=== PATIENT | male | born 1965 | race Caucasian/White ===

== ENCOUNTER 2019-04-17 04:22 | Emergency (ER) | payer MEDICAID ==
[~2019-04-17] VITALS: Ht 177.8 cm; Wt 85.4 kg
--- NOTE | 2019-04-17 04:31 | NUR ---
assessment made. chart up for MD to see. c/o left shoulder pain. Hx of torn rotator cuff. tonight pain worse and unable to left upper arm due to pain.
[2019-04-17] MEDS ORDERED: KETOROLAC 30 MG/1 ML ONE (04:44)
--- NOTE | 2019-04-17 04:48 | NUR ---
patient medicated. to X ray.
--- NOTE | 2019-04-17 04:58 | NUR ---
back from X ray. awaiting result.
[2019-04-17] MEDS ORDERED: KETOROLAC 30 MG/1 ML IM ONE (05:00)
--- NOTE | 2019-04-17 06:30 | NUR ---
re-evaluation done. patient dsicharged with prescriptions and instruction. verbalized understanding.
[2019-04-17 06:56] VITALS: BP 142/81
== END 2019-04-17 06:57 | disposition home or self-care (01) ==
LOC: ED 05:27
DX: S43.422A Sprain of left rotator cuff capsule, initial encounter (principal); I10 Essential (primary) hypertension; X58.XXXA Exposure to other specified factors, initial encounter; Y93.89 Activity, other specified; Y92.89 Other specified places as the place of occurrence of the external cause; Y99.8 Other external cause status
CPT/HCPCS: 73030; 96372; 99283; J1885

== ENCOUNTER 2019-06-21 10:53 | Emergency (ER) | payer MEDICAID ==
[~2019-06-21] VITALS: Ht 177.8 cm; Wt 81.0 kg
[2019-06-21 11:15] VITALS: BP 131/88
== END 2019-06-21 17:08 | disposition home or self-care (01) ==
LOC: ED 12:14
DX: M25.462 Effusion, left knee (principal); I10 Essential (primary) hypertension
CPT/HCPCS: 20610; 84560; 87070; 87205; 89051; 99284

== ENCOUNTER 2020-03-30 20:52 | Emergency (ER) | payer BC, MEDICAID, OTHER ==
[~2020-03-30] VITALS: Ht 177.8 cm; Wt 86.6 kg
[2020-03-30 20:55] VITALS: BP 147/88
--- NOTE | 2020-03-30 21:10 | NUR ---
PT TO ED WITH C/O DRY, SCALY, FLAKING SKIN AROUND NECK AND ACROSS SCALP X5 WEEKS. PT HAS TAKEN PRESCRIPTION MEDICATIONS WITHOUT RELEIF. PT REPORTS INCREASED DISCOMFORT AND ERYTHEMA.
== END 2020-03-30 21:41 | disposition home or self-care (01) ==
LOC: ED 21:30
DX: L20.9 Atopic dermatitis, unspecified (principal); I10 Essential (primary) hypertension; J45.909 Unspecified asthma, uncomplicated; F17.200 Nicotine dependence, unspecified, uncomplicated; Z90.49 Acquired absence of other specified parts of digestive tract
CPT/HCPCS: 99283

== ENCOUNTER 2020-04-08 12:35 | Inpatient (IN) | payer OTHER ==
[~2020-04-08] VITALS: Ht 177.8 cm; Wt 88.3 kg
--- NOTE | 2020-04-08 13:00 | NUR ---
PT PRESENTS TO ED WITH C/O RIGHT SHOULDER PAIN THAT HAS SLOWLY MIGRATED TO NECK, BACK, BILATERAL CHEST AND ABDOMEN, PRESENT X 3 DAYS. PT NOTES ASSOCIATED SX ARE NAUSEA, SOB, GENERALIZED MUSCULAR STIFFNESS. PT STATES MOVEMENT AND EXCERTION INCREASE PAIN. DENIES INJURY/TRAUMA. PT STATES HE HAS HAD SLIGHT COUGH X 2 DAYS, DENIES SORE THROAT, DENIES FEVERS, DENIES SICK CONTACTS. EKG TAKEN IN TRIAGE. ALL MONITORS IN PLACE. CALL LIGHT IN REACH. AWAITING MD AND DISPO.
--- NOTE | 2020-04-08 13:28 | NUR ---
pt seen and examined by KISHOR Lama. labs drawn. all monitors in place. pt to have labs/xray and CT scan.
[2020-04-08] MEDS ORDERED: ASPIRIN 81 MG TABLET CHEW PO ONE (13:30)
[2020-04-08 13:42] LABS: BASOPHILS # (AUTO) 0.04 x10^3/uL (0-0.1); BASOPHILS % (AUTO) 0 % (0-1); EOSINOPHILS # (AUTO) 0.06 x10^3/uL (0-0.4); EOSINOPHILS % (AUTO) 1 % (1-7); LYMPHOCYTES # (AUTO) 1.48 x10^3/uL (1-3.4); LYMPHOCYTES % (AUTO) 13 % (22-44); MD NO; MEAN CORPUSCULAR HEMOGLOBIN 32.2 pg (27.5-34.5); MEAN CORPUSCULAR HGB CONC 33.7 g/dL (33.2-36.2); MEAN CORPUSCULAR VOLUME 95.5 fL (81-97); MONOCYTES # (AUTO) 0.82 x10^3/uL (0.2-0.8); MONOCYTES % (AUTO) 7 % (2-9); NEUTROPHILS # (AUTO) 8.83 x10^3/uL (1.8-6.8); NEUTROPHILS % (AUTO) 79 % (42-75); PLATELET COUNT 268 x10^3/uL (130-400); RED BLOOD COUNT 4.79 x10^6/uL (4.38-5.82); RED CELL DISTRIBUTION WIDTH 14.4 % (9.4-14.8)
[2020-04-08 13:50] LABS: ANION GAP 7 mmol/L (5-15); CALCIUM 8.7 mg/dL (8.5-10.1); CHLORIDE 106 mmol/L (98-107)
--- NOTE | 2020-04-08 13:50 | NUR ---
pt to CT
[2020-04-08 13:56] LABS: ALANINE AMINOTRANSFERASE 33 U/L (12-78); ALKALINE PHOSPHATASE 79 U/L (45-117); CREATININE 0.99 mg/dL (0.7-1.3); TOTAL PROTEIN 7.2 g/dL (6.4-8.2); TROPONIN I < 0.015 ng/mL (0.000-0.045)
[2020-04-08] MEDS ORDERED: ASPIRIN 81 MG TABLET CHEW ONE (14:25)
--- NOTE | 2020-04-08 14:28 | NUR ---
pt back from CT, reports 5/10 chest/back pain. pt a&o, resps even and unlabored. nsr on desk monitor with no ectopy noted. all results back, chart up for recheck. awaiting MD and dispo.
[2020-04-08] MEDS ORDERED: OMNIPAQUE 350 MG/ML, 75ML BOTTLE ONE (14:55)
[2020-04-08] MEDS ORDERED: ONDANSETRON 2MG/ML, 2ML IVPush ONE (15:00)
--- NOTE | 2020-04-08 15:00 | NUR ---
REPORT GIVEN TO SURY AGUIRRE AT BEDSIDE. PT A&O, RESPS EVEN AND UNLABORED. MD DOMINIQUE AT BEDSIDE FOR REASSESSMENT AND TO UPDATE PT WITH POC .
[2020-04-08] MEDS: HYDROmorphone 2 MG/ML, 1ML IVPush PRN ×2 (15:15→19:38)
[2020-04-08] MEDS ORDERED: GADOTERATE 10 MMOL/20 ML SYR ONE (15:52)
--- NOTE | 2020-04-08 16:18 | NUR ---
PT RESTING IN BED, AWAITING MRI AT THIS TIME. DENIES ANY NEEDS OR CONCERNS. VERBALIZES GOOD PAIN RELIEF WITH MEDICATION PER MAR. CALL LIGHT IN REACH.
[2020-04-08] MEDS ORDERED: BISACODYL 10 MG SUPP PR PRN (19:00)
[2020-04-08] MEDS ORDERED: ACETAMINOPHEN 325 MG TABLET PO PRN (19:00)
[2020-04-08] MEDS ORDERED: ONDANSETRON 2MG/ML, 2ML IVPush PRN (19:00)
[2020-04-08] MEDS ORDERED: POLYETHYLENE GLYCOL 17 GM PACKET PO PRN (19:00)
[2020-04-08] MEDS ORDERED: morphine SULFATE 10 MG/ML, 1ML IVPush PRN (19:00)
[2020-04-08] MEDS ORDERED: HYDROmorphone 1 MG/ML, 1ML INJ ONE (19:37)
[2020-04-08 19:58] VITALS: BP 136/87
[2020-04-08] MEDS: SODIUM CHLORIDE FLUSH 10ML SYR IVF SCH (21:15)
[2020-04-08] MEDS: OXYcodone IR 5MG TABLET PO PRN (22:42)
[2020-04-08] MEDS: METHOCARBAMOL 500 MG TABLET PO PRN (23:52)
[2020-04-09] VITALS: BP 136/93
[2020-04-09] MEDS: OXYcodone IR 5MG TABLET PO PRN ×3 (03:04→12:09)
[2020-04-09 06:03] LABS: BASOPHILS # (AUTO) 0.03 x10^3/uL (0-0.1); BASOPHILS % (AUTO) 0 % (0-1); EOSINOPHILS # (AUTO) 0.11 x10^3/uL (0-0.4); EOSINOPHILS % (AUTO) 1 % (1-7); LYMPHOCYTES # (AUTO) 1.88 x10^3/uL (1-3.4); LYMPHOCYTES % (AUTO) 16 % (22-44); MD NO; MEAN CORPUSCULAR HEMOGLOBIN 32.1 pg (27.5-34.5); MEAN CORPUSCULAR HGB CONC 32.9 g/dL (33.2-36.2); MEAN CORPUSCULAR VOLUME 97.4 fL (81-97); MEAN PLATELET VOLUME 7.9 fL (7.4-10.4); MONOCYTES % (AUTO) 8 % (2-9); NEUTROPHILS # (AUTO) 8.95 x10^3/uL (1.8-6.8); NEUTROPHILS % (AUTO) 75 % (42-75); PLATELET COUNT 258 x10^3/uL (130-400); RED BLOOD COUNT 4.33 x10^6/uL (4.38-5.82); RED CELL DISTRIBUTION WIDTH 14.4 % (9.4-14.8)
[2020-04-09 06:08] LABS: ANION GAP 5 mmol/L (5-15); CALCIUM 8.6 mg/dL (8.5-10.1); CHLORIDE 104 mmol/L (98-107)
[2020-04-09] MEDS: SODIUM CHLORIDE FLUSH 10ML SYR IVF SCH ×2 (08:11→20:19)
[2020-04-09] MEDS: SENNA/DOCUSATE TABLET PO SCH (08:11)
[2020-04-09] MEDS: NICOTINE 7 MG/24 HR PATCH.TD24 TD SCH (08:11)
[2020-04-09] MEDS ORDERED: DEXAMETHASONE 4 MG TABLET PO ONE (14:30)
[2020-04-09] MEDS ORDERED: DEXAMETHASONE 4 MG/ML, 1ML IVPush SCH (14:30)
[2020-04-09] MEDS: DEXAMETHASONE 4 MG/ML, 1ML IVPush SCH (14:43)
[2020-04-09] MEDS: OXCARBAZEPINE 150 MG TABLET PO SCH ×2 (14:43→20:18)
[2020-04-09 15:15] VITALS: BP 156/100
[2020-04-09 20:28] VITALS: BP 144/85
[2020-04-10 00:57] VITALS: BP 112/81
[2020-04-10 07:39] VITALS: BP 145/82
[2020-04-10] MEDS: METHOCARBAMOL 500 MG TABLET PO PRN ×3 (08:41→22:06)
[2020-04-10] MEDS: OXYcodone IR 5MG TABLET PO PRN ×3 (08:42→20:53)
[2020-04-10] MEDS: SENNA/DOCUSATE TABLET PO SCH (09:28)
[2020-04-10] MEDS: OXCARBAZEPINE 150 MG TABLET PO SCH ×2 (09:28→19:55)
[2020-04-10] MEDS: DEXAMETHASONE 4 MG/ML, 1ML IVPush SCH (09:29)
[2020-04-10] MEDS: SODIUM CHLORIDE FLUSH 10ML SYR IVF SCH ×2 (09:29→19:55)
[2020-04-10] MEDS: NICOTINE 7 MG/24 HR PATCH.TD24 TD SCH (09:41)
[2020-04-10 16:21] VITALS: BP 119/76
[2020-04-10 18:27] VITALS: BP 142/86
[2020-04-11 00:09] VITALS: BP 144/87
[2020-04-11] MEDS: OXYcodone IR 5MG TABLET PO PRN ×4 (03:21→20:32)
[2020-04-11 07:57] VITALS: BP 156/93
[2020-04-11] MEDS: DEXAMETHASONE 4 MG/ML, 1ML IVPush SCH (09:01)
[2020-04-11] MEDS: OXCARBAZEPINE 150 MG TABLET PO SCH ×2 (09:02→20:32)
[2020-04-11] MEDS: SENNA/DOCUSATE TABLET PO SCH (09:02)
[2020-04-11] MEDS: SODIUM CHLORIDE FLUSH 10ML SYR IVF SCH ×2 (09:03→20:33)
[2020-04-11] MEDS: NICOTINE 7 MG/24 HR PATCH.TD24 TD SCH (09:03)
[2020-04-11] MEDS: METHOCARBAMOL 500 MG TABLET PO PRN (10:45)
[2020-04-11 13:07] VITALS: BP 140/82
[2020-04-11] MEDS: CYCLOBENZAPRINE 10 MG TABLET PO PRN (17:08)
[2020-04-11 19:48] VITALS: BP 154/77
[2020-04-12 01:55] VITALS: BP 136/84
[2020-04-12] MEDS: OXYcodone IR 5MG TABLET PO PRN ×2 (04:52→09:02)
[2020-04-12 07:26] VITALS: BP 146/85
[2020-04-12] MEDS: NICOTINE 7 MG/24 HR PATCH.TD24 TD SCH (09:02)
[2020-04-12] MEDS: SENNA/DOCUSATE TABLET PO SCH (09:02)
[2020-04-12] MEDS: OXCARBAZEPINE 150 MG TABLET PO SCH (09:02)
[2020-04-12] MEDS: SODIUM CHLORIDE FLUSH 10ML SYR IVF SCH (09:03)
[2020-04-12] MEDS: CYCLOBENZAPRINE 10 MG TABLET PO PRN (10:20)
[2020-04-12 13:30] VITALS: BP 139/82
[2020-04-12] MEDS ORDERED: CYCL-259 PO (14:07)
[2020-04-12] MEDS ORDERED: PRED20TA PO (14:07)
[2020-04-12] MEDS ORDERED: OXCA150T18 PO (14:07)
[2020-04-12] MEDS ORDERED: OXYC5TAB3 PO (14:07)
== END 2020-04-12 15:40 | disposition home or self-care (01) | DRG 74 ==
LOC: ED 13:26 → EDIP 18:11 → 3N 19:49 → DCLOUNGE 04-12 15:31
PROVIDERS: ADMIT Family Medicine; ATTEND Internal Medicine
DX: G54.0 Brachial plexus disorders (principal); G54.5 Neuralgic amyotrophy; I10 Essential (primary) hypertension; J45.909 Unspecified asthma, uncomplicated; M19.011 Primary osteoarthritis, right shoulder; M48.02 Spinal stenosis, cervical region; Z66 Do not resuscitate; F17.210 Nicotine dependence, cigarettes, uncomplicated; Z90.49 Acquired absence of other specified parts of digestive tract; Z88.8 Allergy status to other drugs, medicaments and biological substances
CPT/HCPCS: 36415; 71275; 72156; 80048; 80053; 84484; 85025; 93005; 96374; 96375; 96376; G0378; J1100; J1170; J2405; Q9967; A9575; C8935 RT; J7512

== ENCOUNTER 2020-04-19 14:20 | Emergency (ER) | payer MEDICAID, OTHER ==
[~2020-04-19] VITALS: Ht 177.8 cm; Wt 85.4 kg
[~2020-04-19 14:20] MED LIST: CYCL-259 PO; OXCA150T18 PO; OXYC5TAB3 PO; PRED20TA PO
[2020-04-19 16:04] LABS: BASOPHILS # (AUTO) 0.03 x10^3/uL (0-0.1); BASOPHILS % (AUTO) 0 % (0-1); EOSINOPHILS # (AUTO) 0.09 x10^3/uL (0-0.4); EOSINOPHILS % (AUTO) 1 % (1-7); LYMPHOCYTES # (AUTO) 3.71 x10^3/uL (1-3.4); LYMPHOCYTES % (AUTO) 27 % (22-44); MD NO; MEAN CORPUSCULAR HEMOGLOBIN 31.9 pg (27.5-34.5); MEAN CORPUSCULAR HGB CONC 33.1 g/dL (33.2-36.2); MEAN CORPUSCULAR VOLUME 96.3 fL (81-97); MEAN PLATELET VOLUME 7.4 fL (7.4-10.4); MONOCYTES # (AUTO) 0.66 x10^3/uL (0.2-0.8); MONOCYTES % (AUTO) 5 % (2-9); NEUTROPHILS # (AUTO) 9.51 x10^3/uL (1.8-6.8); NEUTROPHILS % (AUTO) 68 % (42-75); PLATELET COUNT 381 x10^3/uL (130-400); RED BLOOD COUNT 4.64 x10^6/uL (4.38-5.82); RED CELL DISTRIBUTION WIDTH 14.3 % (9.4-14.8)
[2020-04-19 16:14] LABS: ALBUMIN 3.1 g/dL (3.4-5.0); ANION GAP 7 mmol/L (5-15); CALCIUM 8.9 mg/dL (8.5-10.1); CHLORIDE 111 mmol/L (98-107)
[2020-04-19 16:15] LABS: CREATININE 0.91 mg/dL (0.7-1.3)
--- NOTE | 2020-04-19 16:33 | NUR ---
attempted to re-vital, per familt patient recently taken for testing
[2020-04-19 16:46] VITALS: BP 166/99
== END 2020-04-19 18:36 | disposition home or self-care (01) ==
LOC: ED 17:17
DX: R21 Rash and other nonspecific skin eruption (principal); T42.1X5A Adverse effect of iminostilbenes, initial encounter; R06.02 Shortness of breath; I51.7 Cardiomegaly; I10 Essential (primary) hypertension; Y92.89 Other specified places as the place of occurrence of the external cause
CPT/HCPCS: 36415; 71046; 80048; 82040; 85025; 93005; 99285

== ENCOUNTER 2020-12-04 02:10 | Emergency (ER) | payer MEDICAID ==
[~2020-12-04] VITALS: Ht 180.3 cm; Wt 85.9 kg
[~2020-12-04 02:10] MED LIST changes: -OXYC5TAB3 PO; +OXYC5TAB98 PO
[2020-12-04 02:25] VITALS: BP 136/88
--- NOTE | 2020-12-04 02:30 | NUR ---
PT HAS BEEN USING RESCUE INHALER, PT WILL NEED NEW PRESCRIPTION FOR INHALER ALBUTEROL
[2020-12-04] MEDS ORDERED: ALBUTEROL/IPRATROPIUM 2.5MG/0.5MG, 3 ML ONE (02:40)
[2020-12-04] MEDS ORDERED: ALBUTEROL/IPRATROPIUM 2.5MG/0.5MG, 3 ML NPPB ONE (03:00)
[2020-12-04 03:06] LABS: BASOPHILS % (AUTO) 1 % (0-1); EOSINOPHILS % (AUTO) 14 % (1-7); LYMPHOCYTES % (AUTO) 27 % (22-44); MEAN CORPUSCULAR HEMOGLOBIN 32.8 pg (27.5-34.5); MEAN CORPUSCULAR HGB CONC 34.4 g/dL (33.2-36.2); MEAN PLATELET VOLUME 7.7 fL (7.4-10.4); MONOCYTES % (AUTO) 11 % (2-9); NEUTROPHILS % (AUTO) 48 % (42-75); PLATELET COUNT 268 x10^3/uL (130-400); RED BLOOD COUNT 4.66 x10^6/uL (4.38-5.82); RED CELL DISTRIBUTION WIDTH 13.6 % (9.4-14.8)
[2020-12-04 03:10] LABS: MD NO
[2020-12-04 03:16] LABS: ALBUMIN 3.4 g/dL (3.4-5.0); ANION GAP 6 mmol/L (5-15); CALCIUM 8.5 mg/dL (8.5-10.1); CHLORIDE 106 mmol/L (98-107); CREATININE 0.92 mg/dL (0.7-1.3)
[2020-12-04 03:19] LABS: TROPONIN I < 0.015 ng/mL (0.000-0.045)
== END 2020-12-04 04:18 | disposition home or self-care (01) ==
LOC: ED 03:19
DX: J45.21 Mild intermittent asthma with (acute) exacerbation (principal); R06.02 Shortness of breath; R05 Cough; R50.9 Fever, unspecified; I10 Essential (primary) hypertension; R00.0 Tachycardia, unspecified; F17.210 Nicotine dependence, cigarettes, uncomplicated; Z90.49 Acquired absence of other specified parts of digestive tract
CPT/HCPCS: 36415; 71045; 80048; 82040; 84484; 85025; 93005; 94640; 99285; 99406; J7512

== ENCOUNTER 2020-12-09 08:07 | Emergency (ER) | payer MEDICAID ==
[~2020-12-09] VITALS: Ht 177.8 cm; Wt 86.4 kg
[~2020-12-09 08:07] MED LIST changes: -CYCL-259 PO; +CYCL10TA2 PO
[2020-12-09 08:33] VITALS: BP 123/85
[2020-12-09] MEDS ORDERED: ALBUTEROL/IPRATROPIUM 2.5MG/0.5MG, 3 ML ONE (08:51)
[2020-12-09] MEDS ORDERED: ALBUTEROL/IPRATROPIUM 2.5MG/0.5MG, 3 ML NPPB ONE (09:00)
== END 2020-12-09 09:46 | disposition home or self-care (01) ==
LOC: ED 08:36
DX: J45.41 Moderate persistent asthma with (acute) exacerbation (principal); I10 Essential (primary) hypertension; Z87.891 Personal history of nicotine dependence
CPT/HCPCS: 71045; 94640; 99285; J7512

== ENCOUNTER 2020-12-19 12:47 | Inpatient (IN) | payer MEDICAID ==
[~2020-12-19] VITALS: Ht 177.8 cm; Wt 87.0 kg
--- NOTE | 2020-12-19 12:59 | NUR ---
PLASTER APPLICATOR: [facility]
--- NOTE | 2020-12-19 13:24 | NUR ---
THIS IS A 55 YR OLD MALE PT WHO SELF REPORTS A HX OF ASTHMA/COPD AND HTN. PT WAS RECENTLY SEEN IN THIS ER FOR SAME SYMPTOMS WHICH INCLUDE SOB REFRACTORY TO NEB TX AND RESCUE INHALER, CHEST PAIN DESCRIBED TIGHTNESS THAT GETS WORSE WITH DEEP INSPIRATION AND COUGH AND INABILITY TO SLEEP DUE TO THE SOB. PT STATES THIS EPIOSODE STARTED 2 DAYS AGO. PT STATES SMOKER FOR MANY YEARS AND JUST RECENTLY QUIT. PT PLACED ON CARDIAC, NIBP, AND O2 MONITORING. PT IN GOWN AND EKG PERFORMED. PT APPEARS IN MILD DISTRESS, BUT SPEAKS IN FULL SENTENCES WITH PAUSES TO CATCH BREATH.
[2020-12-19] MEDS ORDERED: SODIUM CHLORIDE FLUSH 10ML SYR IVF ONE (13:30)
--- NOTE | 2020-12-19 13:34 | NUR ---
pt in bed started iv labs drawn and sent.
[2020-12-19 13:44] LABS: BASOPHILS % (AUTO) 1 % (0-1); EOSINOPHILS % (AUTO) 8 % (1-7); LYMPHOCYTES % (AUTO) 19 % (22-44); MEAN CORPUSCULAR HEMOGLOBIN 32.5 pg (27.5-34.5); MEAN CORPUSCULAR HGB CONC 33.4 g/dL (33.2-36.2); MEAN PLATELET VOLUME 7.5 fL (7.4-10.4); MONOCYTES % (AUTO) 6 % (2-9); NEUTROPHILS % (AUTO) 66 % (42-75); PLATELET COUNT 343 x10^3/uL (130-400); RED BLOOD COUNT 4.86 x10^6/uL (4.38-5.82); RED CELL DISTRIBUTION WIDTH 13.9 % (9.4-14.8)
[2020-12-19 13:48] LABS: MD NO
[2020-12-19 13:55] LABS: ALANINE AMINOTRANSFERASE 31 U/L (12-78); ALBUMIN 3.6 g/dL (3.4-5.0); ANION GAP 14 mmol/L (5-15); CALCIUM 8.5 mg/dL (8.5-10.1); CHLORIDE 112 mmol/L (98-107); CREATININE 0.95 mg/dL (0.7-1.3)
[2020-12-19] MEDS ORDERED: ALBUTEROL/IPRATROPIUM 2.5MG/0.5MG, 3 ML ONE ×3 (13:57→15:01)
[2020-12-19 13:59] LABS: ALKALINE PHOSPHATASE 66 U/L (45-117); BILIRUBIN,TOTAL 0.6 mg/dL (0.2-1.0); TROPONIN I < 0.015 ng/mL (0.000-0.045)
[2020-12-19] MEDS: ALBUTEROL/IPRATROPIUM 2.5MG/0.5MG, 3 ML NPPB SCH ×2 (14:00→15:07)
--- NOTE | 2020-12-19 14:04 | NUR ---
PT IN BED ADMIN DUONEB.
--- NOTE | 2020-12-19 14:53 | NUR ---
pt in bed states partal relief from duoneb. will admit second.
[2020-12-19] MEDS ORDERED: SODIUM CHLORIDE 0.9% 1,000ML IVBOLUS ONE (15:30)
[2020-12-19] MEDS ORDERED: AMLO-210 PO (16:03)
--- NOTE | 2020-12-19 16:11 | NUR ---
med rec done
[2020-12-19] MEDS ORDERED: ALBUTEROL 0.5%, 20ML NPPB ONE (16:30)
--- NOTE | 2020-12-19 17:08 | NUR ---
in room to start ns bolus. pt resting comfortably. pillow provided for comfort. lights dimmed at request. pt updated on poc.
[2020-12-19] MEDS ORDERED: ALBUTEROL SULFATE 2.5 MG/3 ML ONE (17:12)
--- NOTE | 2020-12-19 17:18 | NUR ---
rt notified of treatment ordered. rt will be down for soraya tx
[2020-12-19] MEDS ORDERED: ALBUTEROL 0.5%, 20ML ONE (17:27)
--- NOTE | 2020-12-19 17:34 | NUR ---
pt in bed proventil started by respirtory
--- NOTE | 2020-12-19 18:47 | NUR ---
pt states that he still feels wheezing. neb treatment continued
--- NOTE | 2020-12-19 19:07 | NUR ---
admit to med requested
[2020-12-19] MEDS ORDERED: MELATONIN 5 MG TABLET PO PRN (20:00)
[2020-12-19] MEDS ORDERED: MORPHINE SULFATE 4 MG/ML, 1ML IVPush PRN (20:00)
[2020-12-19] MEDS ORDERED: ALBUTEROL/IPRATROPIUM 2.5MG/0.5MG, 3 ML HHN SCH (20:00)
[2020-12-19] MEDS: ENOXAPARIN 40 MG/0.4 ML SQ SCH (20:00)
[2020-12-19] MEDS ORDERED: ONDANSETRON ODT 4 MG PO PRN (20:00)
[2020-12-19] MEDS ORDERED: hydrALAzine 20 MG/ML, 1ML IVPush PRN (20:00)
[2020-12-19] MEDS ORDERED: ONDANSETRON 2MG/ML, 2ML IVPush PRN (20:00)
[2020-12-19] MEDS ORDERED: DOCUSATE 100 MG CAPSULE PO PRN (20:00)
[2020-12-19] MEDS ORDERED: LACTATED RINGERS 1,000 ML IV SCH (20:00)
[2020-12-19] MEDS ORDERED: BACLOFEN 10 MG TABLET PO PRN (20:00)
[2020-12-19] MEDS ORDERED: POLYETHYLENE GLYCOL 17 GM PACKET PO PRN (20:00)
[2020-12-19] MEDS ORDERED: BISACODYL 10 MG SUPP PR PRN (20:00)
--- NOTE | 2020-12-19 20:00 | NUR ---
PT IN BED ON ROOM AIR. NEBULIZER COMPLETE. PT STATE THAT FEELS BETTER
[2020-12-19] MEDS ORDERED: CEFTRIAXONE PMX 1GM/50ML 50 ML ONE (20:11)
[2020-12-19] MEDS ORDERED: methylPREDNISolone SOD SUCC 125 MG/2 ML ONE (20:11)
[2020-12-19] MEDS ORDERED: ENOXAPARIN 40 MG/0.4 ML ONE (20:11)
[2020-12-19] MEDS: methylPREDNISolone SOD SUCC 125 MG/2 ML IVPush SCH (20:14)
[2020-12-19] MEDS: CEFTRIAXONE PMX 1GM/50ML 50 ML IV SCH (20:15)
[2020-12-19] MEDS: DOXYCYCLINE 100 MG in DEXTROSE 5% 250 ML IV SCH (20:22)
[2020-12-19] MEDS: INSULIN LISPRO 100 UNITS/ML, PEN SQ-INSULIN SCH (20:22)
--- NOTE | 2020-12-19 20:30 | NUR ---
PT IN BED. NO DISTRESS
[2020-12-19] MEDS ORDERED: OMNIPAQUE 350 MG/ML, 100ML BOTTLE ONE (20:53)
--- NOTE | 2020-12-19 21:24 | NUR ---
PT IN BED IVAB RUNNING
--- NOTE | 2020-12-19 21:55 | NUR ---
REPORT GIVEN TO PAIGE GA,
[2020-12-19 22:13] VITALS: BP 147/86
[2020-12-20 01:13] VITALS: BP 127/68
[2020-12-20] MEDS: methylPREDNISolone SOD SUCC 125 MG/2 ML IVPush SCH ×4 (02:32→20:21)
[2020-12-20 05:56] LABS: MICROSCOPIC NOT IND
[2020-12-20 06:32] LABS: BASOPHILS % (AUTO) 1 % (0-1); EOSINOPHILS % (AUTO) 0 % (1-7); LYMPHOCYTES % (AUTO) 8 % (22-44); MEAN CORPUSCULAR HEMOGLOBIN 32.5 pg (27.5-34.5); MEAN CORPUSCULAR HGB CONC 33.5 g/dL (33.2-36.2); MEAN PLATELET VOLUME 7.8 fL (7.4-10.4); MONOCYTES % (AUTO) 1 % (2-9); NEUTROPHILS % (AUTO) 90 % (42-75); PLATELET COUNT 313 x10^3/uL (130-400); RED BLOOD COUNT 4.65 x10^6/uL (4.38-5.82); RED CELL DISTRIBUTION WIDTH 14.2 % (9.4-14.8)
[2020-12-20 06:34] LABS: MD SCAN
[2020-12-20 06:44] LABS: ANION GAP 12 mmol/L (5-15); CALCIUM 8.6 mg/dL (8.5-10.1); CHLORIDE 109 mmol/L (98-107)
[2020-12-20 06:56] LABS: ALANINE AMINOTRANSFERASE 25 U/L (12-78); ALKALINE PHOSPHATASE 66 U/L (45-117); BILIRUBIN,TOTAL 0.4 mg/dL (0.2-1.0); CREATININE 0.96 mg/dL (0.7-1.3); TOTAL PROTEIN 6.3 g/dL (6.4-8.2)
[2020-12-20 07:28] VITALS: BP 123/71
[2020-12-20] MEDS: ALBUTEROL HFA 90 MCG/SPRAY INH SCH ×3 (07:40→18:19)
[2020-12-20] MEDS: INSULIN LISPRO 100 UNITS/ML, PEN SQ-INSULIN SCH ×4 (07:50→20:21)
[2020-12-20] MEDS: PANTOPRAZOLE 40 MG IV IVPush SCH (07:51)
[2020-12-20] MEDS: AMLODIPINE 5 MG TABLET PO SCH (08:57)
[2020-12-20] MEDS: DOXYCYCLINE 100 MG in DEXTROSE 5% 250 ML IV SCH ×2 (08:58→22:07)
[2020-12-20] MEDS: NICOTINE 14MG/24 HR PATCH.TD24 TD SCH (10:33)
[2020-12-20] MEDS: HYDROcodone/APAP 5/325 TABLET PO PRN (12:17)
[2020-12-20 12:48] VITALS: BP 137/77
[2020-12-20] MEDS ORDERED: GUAIFENESIN/DM 100-10MG, 5ML UDC ONE (16:15)
[2020-12-20] MEDS: GUAIFENESIN/DM 100-10MG, 5ML UDC PO PRN (16:16)
[2020-12-20 19:33] VITALS: BP 126/78
[2020-12-20] MEDS: ENOXAPARIN 40 MG/0.4 ML SQ SCH (20:00)
[2020-12-20] MEDS: ALBUTEROL HFA 90 MCG/SPRAY INH PRN (20:09)
[2020-12-20] MEDS: DIPHENHYDRAMINE 25 MG CAPSULE PO PRN (20:15)
[2020-12-20] MEDS: CEFTRIAXONE PMX 1GM/50ML 50 ML IV SCH (20:20)
[2020-12-21] MEDS: ALBUTEROL HFA 90 MCG/SPRAY INH SCH ×4 (01:10→19:00)
[2020-12-21] MEDS: methylPREDNISolone SOD SUCC 125 MG/2 ML IVPush SCH ×4 (01:11→19:35)
[2020-12-21 01:15] VITALS: BP 124/76
[2020-12-21] MEDS: GUAIFENESIN/DM 100-10MG, 5ML UDC PO PRN ×2 (01:20→10:09)
[2020-12-21] MEDS: ALBUTEROL HFA 90 MCG/SPRAY INH PRN ×2 (05:20→18:27)
[2020-12-21] MEDS: ACETAMINOPHEN 325 MG TABLET PO PRN ×2 (05:38→10:09)
[2020-12-21 07:06] VITALS: BP 119/76
[2020-12-21] MEDS: DOXYCYCLINE 100 MG in DEXTROSE 5% 250 ML IV SCH ×2 (07:59→22:00)
[2020-12-21] MEDS: AMLODIPINE 5 MG TABLET PO SCH (07:59)
[2020-12-21] MEDS: INSULIN LISPRO 100 UNITS/ML, PEN SQ-INSULIN SCH ×4 (08:05→21:03)
[2020-12-21] MEDS: FLUTICASONE/VILANTEROL 200-25MCG/INH INH SCH (10:09)
[2020-12-21] MEDS: PANTOPRAZOLE 40 MG IV IVPush SCH (10:09)
[2020-12-21] MEDS: NICOTINE 14MG/24 HR PATCH.TD24 TD SCH (11:50)
[2020-12-21 12:43] VITALS: BP 123/73
[2020-12-21] MEDS ORDERED: POTASSIUM PHOSPHATE 22 MEQ in SODIUM CHLORIDE 0.9% 500 ML IV ONE (13:15)
[2020-12-21] MEDS: DIPHENHYDRAMINE 25 MG CAPSULE PO PRN (18:26)
[2020-12-21] MEDS: CEFTRIAXONE PMX 1GM/50ML 50 ML IV SCH (19:35)
[2020-12-21] MEDS: ENOXAPARIN 40 MG/0.4 ML SQ SCH (19:36)
[2020-12-21 19:51] VITALS: BP 128/82
[2020-12-22 00:25] VITALS: BP 136/78
[2020-12-22] MEDS: ALBUTEROL HFA 90 MCG/SPRAY INH SCH ×5 (01:00→19:00)
[2020-12-22] MEDS: methylPREDNISolone SOD SUCC 125 MG/2 ML IVPush SCH ×4 (01:46→19:55)
[2020-12-22 05:02] LABS: MEAN CORPUSCULAR HGB CONC 34.1 g/dL (33.2-36.2); PLATELET COUNT 316 x10^3/uL (130-400); RED BLOOD COUNT 4.74 x10^6/uL (4.38-5.82); RED CELL DISTRIBUTION WIDTH 14.1 % (9.4-14.8)
[2020-12-22 05:12] LABS: ANION GAP 10 mmol/L (5-15); CALCIUM 8.5 mg/dL (8.5-10.1); CHLORIDE 109 mmol/L (98-107)
[2020-12-22 05:13] LABS: CREATININE 0.82 mg/dL (0.7-1.3)
[2020-12-22 05:51] LABS: MD YES
[2020-12-22 05:54] LABS: BAND#(MANUAL) 0.21 x10^3/uL; BANDS%(MANUAL) 1 % (0-7); BASOS#(MANUAL) 0.21 x10^3/uL (0-0.1); BASOS% (MANUAL) 1 % (0-1); LYMPH#(MANUAL) 0.62 x10^3/uL (1-3.4); LYMPHS% (MANUAL) 3 % (22-44); MONOS#(MANUAL) 0.21 x10^3/uL (0.3-2.7); MONOS% (MANUAL) 1 % (2-9); SEG#(MANUAL) 19.36 x10^3/uL (1.8-6.8); SEGS% (MANUAL) 94 % (42-75)
[2020-12-22 05:55] LABS: ANISOCYTOSIS 1+; OVALOCYTES 1+
[2020-12-22 05:56] LABS: <PLATELET ESTIMATE> ADEQUATE; <PLT MORPHOLOGY> NORMAL PLT MORPH
[2020-12-22] MEDS: INSULIN LISPRO 100 UNITS/ML, PEN SQ-INSULIN SCH ×4 (07:00→20:57)
[2020-12-22] MEDS: DOXYCYCLINE 100 MG in DEXTROSE 5% 250 ML IV SCH ×2 (07:15→08:30)
[2020-12-22 07:17] VITALS: BP 137/87
[2020-12-22] MEDS: AMLODIPINE 5 MG TABLET PO SCH (08:29)
[2020-12-22] MEDS: NICOTINE 14MG/24 HR PATCH.TD24 TD SCH (08:29)
[2020-12-22] MEDS: HYDROcodone/APAP 5/325 TABLET PO PRN (08:36)
[2020-12-22] MEDS: FLUTICASONE/VILANTEROL 200-25MCG/INH INH SCH (10:37)
[2020-12-22 12:45] VITALS: BP 113/72
[2020-12-22] MEDS: CEFTRIAXONE PMX 1GM/50ML 50 ML IV SCH (19:38)
[2020-12-22] MEDS: ENOXAPARIN 40 MG/0.4 ML SQ SCH (19:54)
[2020-12-22 20:42] VITALS: BP 126/76
[2020-12-23 01:09] VITALS: BP 128/75
[2020-12-23] MEDS: DIPHENHYDRAMINE 25 MG CAPSULE PO PRN (01:18)
[2020-12-23] MEDS: ALBUTEROL HFA 90 MCG/SPRAY INH SCH ×4 (02:00→21:04)
[2020-12-23] MEDS: methylPREDNISolone SOD SUCC 125 MG/2 ML IVPush SCH ×3 (02:11→15:52)
[2020-12-23 05:58] LABS: BASOPHILS % (AUTO) 0 % (0-1); EOSINOPHILS % (AUTO) 0 % (1-7); LYMPHOCYTES % (AUTO) 2 % (22-44); MEAN CORPUSCULAR HEMOGLOBIN 32.9 pg (27.5-34.5); MEAN CORPUSCULAR HGB CONC 34.1 g/dL (33.2-36.2); MEAN PLATELET VOLUME 8.1 fL (7.4-10.4); MONOCYTES % (AUTO) 3 % (2-9); NEUTROPHILS % (AUTO) 95 % (42-75); PLATELET COUNT 282 x10^3/uL (130-400); RED BLOOD COUNT 4.64 x10^6/uL (4.38-5.82); RED CELL DISTRIBUTION WIDTH 13.9 % (9.4-14.8)
[2020-12-23 06:11] LABS: CHLORIDE 108 mmol/L (98-107)
[2020-12-23 06:15] LABS: ANION GAP 8 mmol/L (5-15); CALCIUM 8.5 mg/dL (8.5-10.1); CREATININE 0.73 mg/dL (0.7-1.3)
[2020-12-23 06:32] LABS: MD SCAN
[2020-12-23 06:54] VITALS: BP 132/85
[2020-12-23] MEDS: INSULIN LISPRO 100 UNITS/ML, PEN SQ-INSULIN SCH ×4 (07:00→21:08)
[2020-12-23] MEDS: AMLODIPINE 5 MG TABLET PO SCH (07:51)
[2020-12-23] MEDS: DOXYCYCLINE 100 MG in DEXTROSE 5% 250 ML IV SCH ×2 (07:52→20:30)
[2020-12-23] MEDS: FLUTICASONE/VILANTEROL 200-25MCG/INH INH SCH (07:53)
[2020-12-23] MEDS ORDERED: ESOMEPRAZOLE 40 MG IV IVPush SCH (08:56)
[2020-12-23] MEDS: NICOTINE 14MG/24 HR PATCH.TD24 TD SCH (10:54)
[2020-12-23 11:50] VITALS: BP 138/89
[2020-12-23] MEDS: CEFTRIAXONE PMX 1GM/50ML 50 ML IV SCH (19:27)
[2020-12-23] MEDS: HYDROcodone/APAP 5/325 TABLET PO PRN (19:35)
[2020-12-23 19:51] VITALS: BP 139/84
[2020-12-23] MEDS: ENOXAPARIN 40 MG/0.4 ML SQ SCH (21:07)
[2020-12-23] MEDS: PANTOPRAZOLE 40MG TABLET PO SCH (21:08)
[2020-12-24 01:24] VITALS: BP 123/77
[2020-12-24] MEDS: ALBUTEROL HFA 90 MCG/SPRAY INH SCH ×4 (03:00→19:59)
[2020-12-24] MEDS: methylPREDNISolone SOD SUCC 125 MG/2 ML IVPush SCH (04:14)
[2020-12-24 05:59] LABS: BASOPHILS % (AUTO) 0 % (0-1); EOSINOPHILS % (AUTO) 0 % (1-7); LYMPHOCYTES % (AUTO) 6 % (22-44); MEAN CORPUSCULAR HEMOGLOBIN 32.7 pg (27.5-34.5); MEAN CORPUSCULAR HGB CONC 34.1 g/dL (33.2-36.2); MEAN PLATELET VOLUME 8.2 fL (7.4-10.4); MONOCYTES % (AUTO) 6 % (2-9); NEUTROPHILS % (AUTO) 88 % (42-75); PLATELET COUNT 271 x10^3/uL (130-400); RED BLOOD COUNT 4.75 x10^6/uL (4.38-5.82); RED CELL DISTRIBUTION WIDTH 13.7 % (9.4-14.8)
[2020-12-24 06:07] LABS: ANION GAP 7 mmol/L (5-15); CALCIUM 8.4 mg/dL (8.5-10.1); CHLORIDE 107 mmol/L (98-107)
[2020-12-24] MEDS: DIPHENHYDRAMINE 25 MG CAPSULE PO PRN ×2 (06:07→15:12)
[2020-12-24 06:08] LABS: CREATININE 0.76 mg/dL (0.7-1.3)
[2020-12-24 06:37] LABS: MD SCAN
[2020-12-24] MEDS: INSULIN LISPRO 100 UNITS/ML, PEN SQ-INSULIN SCH ×4 (07:00→19:58)
[2020-12-24 07:51] VITALS: BP 150/88
[2020-12-24] MEDS: FLUTICASONE/VILANTEROL 200-25MCG/INH INH SCH (08:07)
[2020-12-24] MEDS: AMLODIPINE 5 MG TABLET PO SCH (08:07)
[2020-12-24] MEDS: PANTOPRAZOLE 40MG TABLET PO SCH ×2 (08:07→20:00)
[2020-12-24] MEDS: DOXYCYCLINE 100 MG in DEXTROSE 5% 250 ML IV SCH (08:08)
[2020-12-24] MEDS: NICOTINE 14MG/24 HR PATCH.TD24 TD SCH (09:52)
[2020-12-24 13:28] VITALS: BP 120/77
[2020-12-24] MEDS: HYDROcodone/APAP 5/325 TABLET PO PRN (15:14)
[2020-12-24 18:25] VITALS: BP 128/72
[2020-12-24] MEDS: CEFTRIAXONE PMX 1GM/50ML 50 ML IV SCH (19:55)
[2020-12-24] MEDS: ENOXAPARIN 40 MG/0.4 ML SQ SCH (19:57)
[2020-12-24] MEDS: DOXYCYCLINE 100MG CAP PO SCH (20:00)
[2020-12-24] MEDS ORDERED: PANT40TA6 PO (22:25)
[2020-12-24] MEDS ORDERED: PRED20TA PO (22:25)
[2020-12-24] MEDS ORDERED: ALBU18HF INH (22:25)
[2020-12-24] MEDS ORDERED: AMOX1TAB64 PO (22:25)
[2020-12-24] MEDS ORDERED: NICO-486 TD (22:25)
[2020-12-24] MEDS ORDERED: FLUT1BLS INH (22:25)
[2020-12-25 00:46] VITALS: BP 145/86
[2020-12-25] MEDS: HYDROcodone/APAP 5/325 TABLET PO PRN (01:59)
[2020-12-25] MEDS: DIPHENHYDRAMINE 25 MG CAPSULE PO PRN (01:59)
[2020-12-25] MEDS: ALBUTEROL HFA 90 MCG/SPRAY INH SCH ×3 (03:13→14:17)
[2020-12-25 05:40] LABS: MEAN CORPUSCULAR HEMOGLOBIN 32.8 pg (27.5-34.5); MEAN PLATELET VOLUME 7.5 fL (7.4-10.4); PLATELET COUNT 221 x10^3/uL (130-400); RED CELL DISTRIBUTION WIDTH 13.8 % (9.4-14.8)
[2020-12-25 05:46] LABS: ANION GAP 5 mmol/L (5-15); CHLORIDE 108 mmol/L (98-107); CREATININE 0.81 mg/dL (0.7-1.3)
[2020-12-25 06:21] LABS: MD YES
[2020-12-25 06:23] LABS: BAND#(MANUAL) 0.08 x10^3/uL; BANDS%(MANUAL) 1 % (0-7); EOS#(MANUAL) 0.24 x10^3/uL (0.0-0.4); EOS% (MANUAL) 3 % (1-7); LYMPH#(MANUAL) 2.24 x10^3/uL (1-3.4); LYMPHS% (MANUAL) 28 % (22-44); METAMYELOCYTES# (MANUAL) 0.16 x10^3/uL (0-0); METAMYELOCYTES% (MANUAL) 2 % (0-1); MONOS#(MANUAL) 0.32 x10^3/uL (0.3-2.7); MONOS% (MANUAL) 4 % (2-9); REACTIVE LYMPHS % (MANUAL) 5 % (0-0); SEG#(MANUAL) 4.56 x10^3/uL (1.8-6.8); SEGS% (MANUAL) 57 % (42-75)
[2020-12-25 06:24] LABS: <PLATELET ESTIMATE> ADEQUATE; <PLT MORPHOLOGY> NORMAL PLT MORPH; <RBC MORPHOLOGY> NORMAL
[2020-12-25 06:44] VITALS: BP 128/75
[2020-12-25] MEDS: INSULIN LISPRO 100 UNITS/ML, PEN SQ-INSULIN SCH ×2 (07:00→11:00)
[2020-12-25] MEDS: AMLODIPINE 5 MG TABLET PO SCH (08:26)
[2020-12-25] MEDS: PANTOPRAZOLE 40MG TABLET PO SCH (08:27)
[2020-12-25] MEDS: DOXYCYCLINE 100MG CAP PO SCH (08:27)
[2020-12-25] MEDS: FLUTICASONE/VILANTEROL 200-25MCG/INH INH SCH (09:00)
[2020-12-25] MEDS: NICOTINE 14MG/24 HR PATCH.TD24 TD SCH (11:34)
[2020-12-25 12:26] VITALS: BP 119/77
[2020-12-25 12:27] VITALS: BP 137/79
== END 2020-12-25 14:54 | disposition home or self-care (01) | DRG 133 ==
LOC: ED 15:09 → EDIP 18:46 → 4EST 22:19 → DCLOUNGE 12-25 14:49
PROVIDERS: ADMIT Hospitalist; ATTEND Internal Medicine
DX: J96.01 Acute respiratory failure with hypoxia (principal); E86.0 Dehydration; F17.210 Nicotine dependence, cigarettes, uncomplicated; I11.0 Hypertensive heart disease with heart failure; I50.9 Heart failure, unspecified; J15.9 Unspecified bacterial pneumonia; J44.0 Chronic obstructive pulmonary disease with (acute) lower respiratory infection; J44.1 Chronic obstructive pulmonary disease with (acute) exacerbation; J45.901 Unspecified asthma with (acute) exacerbation; M19.90 Unspecified osteoarthritis, unspecified site; G89.29 Other chronic pain; M25.511 Pain in right shoulder; Z20.822 Contact with and (suspected) exposure to COVID-19; M25.512 Pain in left shoulder; Z82.3 Family history of stroke; Z90.49 Acquired absence of other specified parts of digestive tract
CPT/HCPCS: 36415; 71045; 71275; 80048; 80053; 81003; 82962; 83036; 83605; 83735; 83880; 84100; 84145; 84443; 84484; 85025; 85379; 87040; 93005; 93306; 93356; 94640; 96361; 96372; 96374; 96375; 99285; G0378; J0696; J1650; J7060; Q9967; C9113; J1815; J2930; J7030; J7040; J7120; J7512; Q0163; U0003